=== PATIENT | male | born 1985 | race Two or more races ===

== ENCOUNTER 2019-04-30 16:14 | Emergency (ER) | payer OTHER ==
[2019-04-30 16:31] VITALS: TEMP 98; BMI 24.2
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
[2019-04-30] MEDS ORDERED: ONDANSETRON 4 MG/2 ML VIAL IVPUSH ONE (16:48)
[2019-04-30] MEDS ORDERED: SODIUM CHLORIDE 0.9% 500 ML INFUS.BAG IV ONE ×2 (16:48→17:00)
[2019-04-30] MEDS ORDERED: FAMOTIDINE 20 MG/50 ML IVPB 20 MG/50 ML MG IVPB ONE ×2 (16:49→17:05)
[2019-04-30] MEDS ORDERED: ACETAMINOPHEN 1000 MG/100 ML VIAL (NON FORMULARY) IVPB ONE (16:50)
[2019-04-30] MEDS ORDERED: morphine CARPU-JECT 4 MG/1 ML DISP.SYRIN IVPUSH ONE (16:54)
[2019-04-30] MEDS ORDERED: ONDANSETRON 4 MG/2 ML VIAL ONE (17:05)
[2019-04-30] MEDS ORDERED: morphine SULFATE 4 MG/ML VIAL ONE (17:05)
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
[2019-04-30 17:22] LABS: BASO % 0.3 % (0-2.0); EOS % 1.6 % (0-4.5); HEMOGLOBIN 16.8 GM/dL (11.7-16.9); LYMPH % 8.6 % (8-40); MCH 32.3 pg (25.7-33.7); MCHC 33.5 g/dl (32.0-35.9); MEAN CELL VOLUME 96.3 fl (80-96); MEAN PLT VOLUME 7.7 fl (7.5-11.1); MONO % 5.9 % (3.8-10.2); NEUT % 83.6 % (42.8-82.8); PLATELET COUNT 289 K/MM3 (134-434); RBC 5.19 M/mm3 (4.00-5.60); RDW 12.9 % (11.9-15.9); WHITE BLOOD COUNT 10.6 K/mm3 (4.0-10.0)
[2019-04-30 17:31] LABS: INR 1.12 (0.83-1.09); PROTHROMBIN TIME (PATIENT) 13.2 SEC (9.7-13.0)
[2019-04-30 17:44] LABS: MAGNESIUM 2.2 mg/dL (1.8-2.4)
[2019-04-30 17:49] LABS: URINE APPEARANCE CLEAR; URINE BILIRUBIN NEGATIVE (NEGATIVE); URINE COLOR YELLOW; URINE GLUCOSE (UA) NEGATIVE (NEGATIVE); URINE KETONE TRACE (NEGATIVE); URINE LEUK ESTERASE NEGATIVE (NEGATIVE); URINE NITRITE NEGATIVE (NEGATIVE); URINE PROTEIN NEGATIVE (NEGATIVE)
[2019-04-30 17:50] LABS: ALBUMIN 4.6 g/dl (3.4-5.0); BILIRUBIN,TOTAL 0.6 mg/dL (0.2-1); BLOOD UREA NITROGEN 20.4 mg/dL (7-18); CREATININE 1.1 mg/dL (0.55-1.3); POTASSIUM 4.1 mmol/L (3.5-5.1); TOT PROT 8.1 g/dl (6.4-8.2)
[2019-04-30 18:35] LABS: COCAINE, UR NEGATIVE ng/ml (CUTOFF=300); METHADONE, UR NEGATIVE ng/ml (CUTOFF=300); PHENCYCLIDINE,URINE NEGATIVE ng/ml (CUTOFF=25); URINE AMPHETAMINES NEGATIVE ng/ml (CUTOFF=500); URINE BARBITURATES NEGATIVE ng/ml (CUTOFF=200); URINE BENZODIAZEPINES NEGATIVE ng/ml (CUTOFF=200)
[2019-04-30 18:52] VITALS: BP 124/78; PULSE 72
[2019-04-30 18:54] LABS: OPIATES, URI POSITIVE ng/ml (CUTOFF=300)
[2019-04-30] MEDS ORDERED: SODIUM CHLORIDE 0.9% 1000 ML INFUS.BAG IV ONE (19:02)
[2019-04-30] MEDS ORDERED: KETOROLAC TROMETHAMINE 15 MG/ML VIAL IVPUSH ONE (19:02)
[2019-04-30] MEDS ORDERED: LACTATED RINGERS SOLUTION 1000 ML INFUS.BAG IV ONE (19:07)
[2019-04-30] MEDS ORDERED: KETOROLAC TROMETHAMINE 15 MG/ML VIAL ONE ×2 (19:09)
--- NOTE | 2019-04-30 19:38 | PDOC ---
*Physical Exam - Vital Signs Last Vital Signs Temp Pulse Resp BP Pulse Ox 98.0 F 72 18 124/78 100 04/30/19 16:17 04/30/19 18:51 04/30/19 16:17 04/30/19 18:51 04/30/19 18:51 - Physical Exam Comments: MDM: Received sign out from resident Dr. Theodore. In short, pt is a previously healthy 34 y/o male presenting for abdominal pain. Symptoms are likely secondary to constipation. Prescribed Mag Citrate. Anticipate discharge home after completing IV FB. ED Treatment Course - LABORATORY CBC & Chemistry Diagram: 04/30/19 17:10 04/30/19 17:10 - ADDITIONAL ORDERS Additional order review: Laboratory Results 04/30/19 04/30/19 04/30/19 17:35 17:35 17:10 PT with INR INR PTT (Actin FS) Sodium Potassium Chloride Carbon Dioxide Anion Gap BUN Creatinine Est GFR (CKD-EPI)AfAm Est GFR (CKD-EPI)NonAf Random Glucose Calcium Magnesium Total Bilirubin AST ALT Alkaline Phosphatase Total Protein Albumin Lipase Urine Color Yellow Urine Appearance Clear Urine pH 5.0 Ur Specific [place] 1.030 Urine Protein Negative Urine Glucose (UA) Negative Urine Ketones Trace H Urine Blood Negative Urine Nitrite Negative Urine Bilirubin Negative Urine Urobilinogen 1.0 Ur Leukocyte Esterase Negative Opiates Screen Positive A* Methadone Screen Negative Barbiturate Screen Negative Phencyclidine Screen Negative Ur Amphetamines Screen Negative MDMA (Ecstasy) Screen Negative Benzodiazepines Screen Negative Cocaine Screen Negative U Marijuana (THC) Screen Positive A* Blood Type O POSITIVE Antibody Screen Negative 04/30/19 04/30/19 04/30/19 17:10 17:10 17:10 PT with INR 13.20 H INR 1.12 H PTT (Actin FS) 28.1 Sodium Potassium Chloride Carbon Dioxide Anion Gap BUN Creatinine Est GFR (CKD-EPI)AfAm Est GFR (CKD-EPI)NonAf Random Glucose Calcium Magnesium 2.2 Total Bilirubin AST ALT Alkaline Phosphatase Total Protein Albumin Lipase 79 Urine Color Urine Appearance Urine pH Ur Specific [place] Urine Protein Urine Glucose (UA) Urine Ketones Urine Blood Urine Nitrite Urine Bilirubin Urine Urobilinogen Ur Leukocyte Esterase Opiates Screen Methadone Screen Barbiturate Screen Phencyclidine Screen Ur Amphetamines Screen MDMA (Ecstasy) Screen Benzodiazepines Screen Cocaine Screen U Marijuana (THC) Screen Blood Type Antibody Screen 04/30/19 17:10 PT with INR INR PTT (Actin FS) Sodium 138 Potassium 4.1 Chloride 102 Carbon Dioxide 28 Anion Gap 8 BUN 20.4 H Creatinine 1.1 Est GFR (CKD-EPI)AfAm 100.97 Est GFR (CKD-EPI)NonAf 87.12 Random Glucose 72 L Calcium 10.0 Magnesium Total Bilirubin 0.6 AST 28 ALT 32 Alkaline Phosphatase 95 Total Protein 8.1 Albumin 4.6 Lipase Urine Color Urine Appearance Urine pH Ur Specific [place] Urine Protein Urine Glucose (UA) Urine Ketones Urine Blood Urine Nitrite Urine Bilirubin Urine Urobilinogen Ur Leukocyte Esterase Opiates Screen Methadone Screen Barbiturate Screen Phencyclidine Screen Ur Amphetamines Screen MDMA (Ecstasy) Screen Benzodiazepines Screen Cocaine Screen U Marijuana (THC) Screen Blood Type Antibody Screen 04/30/19 17:10 RBC 5.19 MCV 96.3 H MCHC 33.5 RDW 12.9 MPV 7.7 Neutrophils % 83.6 H Lymphocytes % 8.6 Monocytes % 5.9 Eosinophils % 1.6 Basophils % 0.3 - RADIOLOGY Radiograph Interpretation: CTAB: THIS IS A PRELIMINARY REPORT FROM [facility] DATE OF SERVICE: 2019-04-30 18:13:38 IMAGES: [id number] EXAM: ABDOMEN \T\ PELVIS CT WITH CONTR HISTORY: Left sided abdominal pain. History of ruptured cyst COMPARISON: None provided FINDINGS: The visualized lung bases are clear The upper abdominal visceral organs are unremarkable There is no bowel distention. The appendix is normal Moderate fecal retention predominantly in the right and transverse colon The pelvic organs are unremarkable No intra-abdominal free air, free fluid or loculated collections One or more of the following dose reduction techniques were used: automated exposure control, adjustment of the mA and/or kV according to patient size, use of iterative reconstructive technique. THIS DOCUMENT HAS BEEN ELECTRONICALLY SIGNED Esvin Hogan MD 04/30/2019 18:52 EST - Medications Given in the ED: ED Medications Discontinued Medications Generic Name Dose Route Start Last Admin Trade Name Freq PRN Reason Stop Dose Admin Acetaminophen 1,000 mg 04/30/19 16:50 04/30/19 18:04 Ofirmev Injection - IVPB 04/30/19 16:51 Not Given ONCE ONE Famotidine/Sodium Chloride 20 mg in 50 mls @ 100 mls/hr 04/30/19 16:49 17:18 Pepcid 20 Mg Premixed Ivpb - IVPB 04/30/19 17:18 100 mls/hr ONCE ONE Administration Ketorolac Tromethamine 15 mg 04/30/19 19:02 04/30/19 19:13 Toradol Injection - IVPUSH 04/30/19 19:03 15 mg ONCE ONE Administration Lactated Ringer's 1,000 ml 04/30/19 19:07 04/30/19 19:14 Lactated Ringers Solution IV 04/30/19 19:08 1,000 ml NOW ONE Administration Morphine Sulfate 4 mg 04/30/19 16:54 04/30/19 17:15 Morphine Injection - IVPUSH 04/30/19 16:55 4 mg ONCE ONE Administration Ondansetron HCl 4 mg 04/30/19 16:48 04/30/19 17:10 Zofran Injection IVPUSH 04/30/19 16:49 4 mg NOW ONE Administration Sodium Chloride 1,000 ml 04/30/19 16:48 04/30/19 17:10 Normal Saline - IV 04/30/19 16:49 1,000 ml ONCE ONE Administration Sodium Chloride 1,000 ml 04/30/19 17:00 04/30/19 17:58 Normal Saline - IV 04/30/19 17:01 1,000 ml ONCE ONE Administration Sodium Chloride 1,000 ml 04/30/19 19:02 04/30/19 19:13 Normal Saline - IV 04/30/19 19:03 1,000 ml ONCE ONE Administration Discharge - Discharge Information Problems reviewed: Yes Clinical Impression/Diagnosis: Constipation Qualifiers: Constipation type: unspecified constipation type Qualified Code(s): K59.00 - Constipation, unspecified Condition: Improved Disposition: HOME - Admission No - Additional Discharge Information Prescriptions: Magnesium Citrate [Citroma -] 150 ml PO BID #1 bottle - Follow up/Referral Referrals: [facility] [Provider Group] - Patient Discharge Instructions Patient Printed Discharge Instructions: DI for Constipation Additional Instructions: You were seen for abdominal pain and vomiting. Your labs and imaging did not show anything concerning. You were given medication for your pain. Please see your primary care doctor regarding this visit. Please take your prescribed Magnesium citrate as directed to relieve your constipation. 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
--- NOTE | 2019-05-01 16:50 | EKG ---
Test Reason : Blood Pressure : / mmHG Vent. Rate : 069 BPM Atrial Rate : 069 BPM P-R Int : 152 ms QRS Dur : 084 ms QT Int : 368 ms P-R-T Axes : 060 111 054 degrees QTc Int : 394 ms NORMAL SINUS RHYTHM NO PREVIOUS ECGS AVAILABLE Confirmed by BECKY RODRIGUEZ MD ([id number]) on 05/01/2019 4:49:49 PM Referred By: Confirmed By:BECKY RODRIGUEZ MD
== END 2019-04-30 19:57 | disposition home or self-care (01) ==
LOC: JER 16:14
PROC: 3E033GC Introduction of Other Therapeutic Substance into Peripheral Vein, Percutaneous Approach (ICD-10-PCS; principal; 2019-04-30)
PROC: 3E033GC Introduction of Other Therapeutic Substance into Peripheral Vein, Percutaneous Approach (ICD-10-PCS; 2019-04-30)
PROC: 3E0333Z Introduction of Anti-inflammatory into Peripheral Vein, Percutaneous Approach (ICD-10-PCS; 2019-04-30)
PROC: 3E033NZ Introduction of Analgesics, Hypnotics, Sedatives into Peripheral Vein, Percutaneous Approach (ICD-10-PCS; 2019-04-30)
DX: K59.00 Constipation, unspecified (principal)
CPT/HCPCS: 36415; 74177-TC; 80053; 80307; 81003; 83690; 83735; 85025; 85610; 85730; 86850; 86900; 86901; 87086; 93005; 93010; 96365; 96375; 99284-25; J7030

== ENCOUNTER 2020-04-11 17:50 | Emergency (ER) | payer OTHER ==
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
[2020-04-11 18:13] VITALS: BP 120/74; PULSE 89; TEMP 97.5; BMI 20.9
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
== END 2020-04-11 19:46 | disposition home or self-care (01) ==
LOC: JER 17:50 → JERFT 17:50
DX: S49.91XA Unspecified injury of right shoulder and upper arm, initial encounter (principal)
CPT/HCPCS: 70450-TC; 73030-TC-RT-FY; 99285-25

== ENCOUNTER 2020-11-10 22:52 | Inpatient (IN) | payer OTHER ==
[2020-11-10] MEDS ORDERED: morphine CARPU-JECT 4 MG/1 ML DISP.SYRIN IVPUSH ONE (23:02)
[2020-11-10] MEDS ORDERED: morphine SULFATE 4 MG/ML VIAL ONE ×2 (23:04→23:44)
[2020-11-10] MEDS ORDERED: SODIUM CHLORIDE 0.9% 500 ML INFUS.BAG IV ONE (23:17)
[2020-11-10 23:19] LABS: BASO % 0.2 % (0-2.0); EOS % 3.9 % (0-4.5); HEMATOCRIT 44.6 % (35.4-49); HEMOGLOBIN 15.4 GM/dL (11.7-16.9); LYMPH % 35.5 % (8-40); MCH 33.2 pg (25.7-33.7); MCHC 34.6 g/dl (32.0-35.9); MEAN CELL VOLUME 96.1 fl (80-96); MONO % 9.4 % (3.8-10.2); PLATELET COUNT 250 K/MM3 (134-434); RBC 4.64 M/mm3 (4.00-5.60); RDW 12.9 % (11.9-15.9); WHITE BLOOD COUNT 11.5 K/mm3 (4.0-10.0)
[2020-11-10 23:24] LABS: INR 1.07 (0.83-1.09); PROTHROMBIN TIME (PATIENT) 13.1 SEC (9.7-13.0)
[2020-11-11 00:01] LABS: BLOOD UREA NITROGEN 14.6 mg/dL (7-18); CALCIUM 9.4 mg/dL (8.5-10.1)
[2020-11-11] MEDS ORDERED: morphine CARPU-JECT 4 MG/1 ML DISP.SYRIN IVPUSH ONE (00:02)
[2020-11-11 00:03] LABS: POTASSIUM 3.8 mmol/L (3.5-5.1)
[2020-11-11 00:05] LABS: CREATININE 1.2 mg/dL (0.55-1.3)
[2020-11-11 00:06] LABS: BILIRUBIN,TOTAL 0.3 mg/dL (0.2-1); TOT PROT 7.5 g/dl (6.4-8.2)
[2020-11-11 01:15] VITALS: BMI 20.5
[2020-11-11] MEDS ORDERED: KETOROLAC TROMETHAMINE 15 MG/ML VIAL IVPUSH ONE (05:19)
[2020-11-11] MEDS ORDERED: KETOROLAC TROMETHAMINE 15 MG/ML VIAL ONE (05:20)
[2020-11-11] MEDS ORDERED: LIDOCAINE 5% TOPICAL PATCH ONE (05:37)
[2020-11-11 06:28] VITALS: BP 124/85; PULSE 76; TEMP 98.9
[2020-11-11 07:51] LABS: PH,URINE 7.5 (5.0-8.0); URINE APPEARANCE CLEAR; URINE BILIRUBIN NEGATIVE (NEGATIVE); URINE COLOR YELLOW; URINE GLUCOSE (UA) NEGATIVE (NEGATIVE); URINE KETONE NEGATIVE (NEGATIVE); URINE LEUK ESTERASE NEGATIVE (NEGATIVE); URINE NITRITE NEGATIVE (NEGATIVE); URINE PROTEIN NEGATIVE (NEGATIVE); URINE UROBILINOGEN 0.2 mg/dL (0.2-1.0)
[2020-11-11 08:03] LABS: URINE AMPHETAMINES NEGATIVE ng/ml (CUTOFF=500); URINE BARBITURATES NEGATIVE ng/ml (CUTOFF=200)
[2020-11-11 08:04] LABS: METHADONE, UR NEGATIVE ng/ml (CUTOFF=300); PHENCYCLIDINE,URINE NEGATIVE ng/ml (CUTOFF=25)
[2020-11-11 08:15] LABS: URINE BENZODIAZEPINES NEGATIVE ng/ml (CUTOFF=200)
[2020-11-11 08:29] LABS: COCAINE, UR POSITIVE ng/ml (CUTOFF=300); OPIATES, URI POSITIVE ng/ml (CUTOFF=300)
[2020-11-11] MEDS ORDERED: ACETAMINOPHEN 325 MG TABLET (FP) PO ONE (11:13)
== END 2020-11-11 12:40 | disposition home or self-care (01) | DRG 351 ==
LOC: JER 22:52 → JERBED 11-11 06:54
PROVIDERS: ADMIT Internal Medicine; ATTEND Internal Medicine
DX: M25.551 Pain in right hip (principal); M79.652 Pain in left thigh; M25.532 Pain in left wrist; V03.02XA Pedestrian on skateboard injured in collision with car, pick-up truck or van in nontraffic accident, initial encounter; Y92.488 Other paved roadways as the place of occurrence of the external cause
CPT/HCPCS: 36415; 70450-TC; 71045-TC-FY; 72125-TC; 72170-TC-FY; 73110-TC-LT-FY; 73552-TC-LT-FY; 80053; 80307; 81003; 82962; 84484; 85025; 85610; 85730; 86850; 86900; 86901; 93005; 93010; 99285-25; C9803; U0003; U0005

== ENCOUNTER 2022-02-05 11:51 | Emergency (ER) | payer OTHER ==
[2022-02-05 12:18] VITALS: BP 131/95; PULSE 90; TEMP 98.2; BMI 22.6
== END 2022-02-05 14:24 | disposition home or self-care (01) ==
LOC: JERFT 11:51
PROC: 0HQFXZZ Repair Right Hand Skin, External Approach (ICD-10-PCS; principal; 2022-02-05)
DX: S61.011A Laceration without foreign body of right thumb without damage to nail, initial encounter (principal); S61.214A Laceration without foreign body of right ring finger without damage to nail, initial encounter; W25.XXXA Contact with sharp glass, initial encounter
CPT/HCPCS: 73130-TC-RT-FY; 99283-25

== ENCOUNTER 2022-02-12 09:12 | Emergency (ER) | payer OTHER ==
[2022-02-12 09:17] VITALS: BP 116/68; PULSE 79; TEMP 97.8; BMI 22.6
== END 2022-02-12 09:30 | disposition home or self-care (01) ==
LOC: JERFT 09:12
DX: S61.011A Laceration without foreign body of right thumb without damage to nail, initial encounter (principal); Y99.9 Unspecified external cause status; Z48.02 Encounter for removal of sutures
CPT/HCPCS: 99282-25

== ENCOUNTER 2022-05-31 13:39 | Emergency (ER) | payer OTHER ==
[2022-05-31 13:50] VITALS: BP 101/73; PULSE 76; RESP 18; TEMP 98.4; BMI 21.7
== END 2022-05-31 17:27 | disposition home or self-care (01) ==
LOC: JER 13:39
DX: R05.1 Acute cough (principal)
CPT/HCPCS: 71046-TC-FY; 99283-25

== ENCOUNTER 2022-11-03 16:51 | Emergency (ER) | payer OTHER ==
[2022-11-03 17:07] VITALS: BP 117/71; PULSE 107; RESP 18; TEMP 100.2; BMI 20.9
[2022-11-03] MEDS ORDERED: ACETAMINOPHEN 500 MG TABLET (FP) PO ONE (17:40)
[2022-11-03] MEDS ORDERED: ACETAMINOPHEN 325 MG TABLET (FP) ONE (18:50)
[2022-11-03] MEDS ORDERED: IBUPROFEN 600 MG TABLET (FP) PO ONE (19:21)
== END 2022-11-03 20:05 | disposition home or self-care (01) ==
LOC: JERFT 16:51 → JER 16:51 → JERFT 20:05
DX: J10.1 Influenza due to other identified influenza virus with other respiratory manifestations (principal); R50.9 Fever, unspecified; R05.1 Acute cough; M79.10 Myalgia, unspecified site; Z20.822 Contact with and (suspected) exposure to COVID-19
CPT/HCPCS: 0241U-QW; 99283-25